=== PATIENT | female | born 1975 | race Caucasian/White ===

== ENCOUNTER → 2017-02-03 | Outpatient (CLI) | payer BC ==
[~2017-02-03] MED LIST: DOCU-94 PO; ESCI10TA17 PO; IBUP-103 PO; PEDICHW50 PO
--- NOTE | 2017-02-03 09:23 | DIAGNOSTIC IMAGING REPORT ---
EXAMINATION: PELVIC ULTRASOUND (transabdominal and endovaginal scanning) CLINICAL HISTORY: MENOMETRORRHAGIA COMPARISON STUDY: CT scan dated 01/02/2007 FINDINGS: The uterus measured 8.8 x 3.7 x 3.4 cm. Several nabothian gland cysts are visualized.. The endometrial stripe measured 7 mm. The right ovary measured 21 x 19 x 12 mm.. The left ovary measured 39 x 36 x 26 mm. There is a 29 mm septated cyst.. There is no ultrasonographic evidence of ovarian torsion. It should be noted that ovarian torsion can be present with normal Doppler ultrasonographic findings. There was no evidence of pathologic free pelvic fluid. IMPRESSION: 1. 7 mm endometrial stripe 2. 29 mm septated left ovarian cyst, likely functional Electronically signed by: Yury Blevins M.D. 02/03/2017 9:22 AM Dictated Date/Time: 02/03/2017 9:19 AM
== END | disposition home or self-care (01) ==
LOC: C.ULTR 08:19
PROVIDERS: ATTEND Family Medicine
DX: N92.1 Excessive and frequent menstruation with irregular cycle (principal)

== ENCOUNTER 2017-04-10 16:12 | Emergency (ER) | payer BC ==
[~2017-04-10] VITALS: Ht 157.5 cm; Wt 111.8 kg
[~2017-04-10 16:12] MED LIST changes: -DOCU-94 PO; -ESCI10TA17 PO; -IBUP-103 PO
[2017-04-10 16:22] VITALS: TEMP 36.4; Ht 157.5 cm; Wt 111.8 kg
[2017-04-10] MEDS ORDERED: ESCI10TA17 PO (16:42)
[2017-04-10] MEDS ORDERED: DOCU-94 PO (16:42)
[2017-04-10] MEDS ORDERED: IBUP-103 PO (16:42)
[2017-04-10 17:03] LABS: BASO % 0.5 %; BASO ABS # 0.04 K/uL (0-0.2); COMPLETE YES; EOS % 3.9 %; HEMATOCRIT 42.3 % (37-47); IG% 0.4 %; LYMPH % 25.7 %; LYMPH ABS # 2.05 K/uL (1.2-3.4); MEAN CELL VOLUME 91.8 fL (80-100); MEAN CORPUSCULAR HEMOGLOBIN 31.7 pg (25-34); MEAN CORPUSCULAR HGB CONC 34.5 g/dl (32-36); MEAN PLATELET VOLUME 9.5 fL (7.4-10.4); MONO % 8.6 %; NEUT % 60.9 %; PLATELET COUNT 260 K/uL (130-400); RED BLOOD COUNT 4.61 M/uL (4.2-5.4); WHITE BLOOD COUNT 7.99 K/uL (4.8-10.8)
[2017-04-10 17:14] LABS: PARTIAL THROMBOPLASTIN RATIO 1.2; PROTHROMBIN TIME (PATIENT) 10.6 SECONDS (9.0-12.0)
[2017-04-10 17:18] LABS: BUN/CREATININE RATIO 13.7 (10-20); CALCIUM 9.1 mg/dl (8.5-10.1); POTASSIUM 3.6 mmol/L (3.5-5.1)
[2017-04-10] MEDS ORDERED: SILVER NITR/POTASSIUM NITRATE APPLICATOR EXT STA (17:31)
--- NOTE | 2017-04-10 18:06 | EMERGENCY ROOM VISIT NOTE ---
History First contact with patient: 16:27 Chief Complaint: VAGINAL BLEEDING Stated Complaint: BLEEDING POST HYSTERECTOMY (3 WKS AGO) History of Present Illness The patient is a 41 year old female who presents to the Emergency Room with complaints of vaginal bleeding which began 30 minutes prior to arrival. The patient states that she had a laparoscopic assisted vaginal hysterectomy at [facility] on March 16 of this year. She states that everything, including the cervix was removed except for the right ovary. This was performed due to fibroids, ovarian cysts, and endometriosis. The patient states that she was referred to [place] by her primary care provider and does not see an DITCH CLEANER locally. She states that she has been healing very well since the surgery until this morning. She reports she has had a cough for the past few days and prior to arrival, she developed vaginal bleeding with clots. She is unsure if this is due to the cough. She is scheduled for a postop check tomorrow. She has no history of bleeding disorders. She does not take any blood thinners. She denies any weakness, dizziness or passing out. She denies any abdominal or vaginal pain. Review of Systems A complete 10 point review of systems was reviewed with the patient with pertinent positives and negatives as per history of present illness. All else were negative. Social History Smoking Status: Never Smoker Current/Historical Medications Scheduled Docusate Sodium (Colace), 100 MG PO TID Escitalopram (Lexapro), 5 MG PO QAM Scheduled PRN Ibuprofen Tab (Advil), 400 MG PO Q6H PRN for Pain Allergies Coded Allergies: No Known Allergies (Verified , 02/02/12) Physical Exam Vital Signs Date Time Temp Pulse Resp B/P Pulse Ox O2 Delivery O2 Flow Rate FiO2 04/10/17 18:23 89 18 168/94 96 04/10/17 16:22 36.4 100 18 171/107 94 Room Air Physical Exam VITALS: Vitals are noted on the nurse's note and reviewed by myself. Vital signs stable. GENERAL: This is a 41-year-old female, in no acute distress, nondiaphoretic, well-developed well-nourished. SKIN: Capillary reflex less than 2 seconds. HEART: Regular rate and rhythm without murmurs gallops or rubs. LUNGS: Clear to auscultation bilaterally without wheezes, rales or rhonchi. ABDOMEN: Soft, nontender to palpation. PELVIC: External genitalia unremarkable. There is a small amount of clotted blood within the vaginal vault. The vaginal cuff is intact and there is some clotted blood from the superior aspect of the cuff. NEURO: Patient was alert and oriented to person place and time. Medical Decision & Procedures Laboratory Results 04/10/17 16:50 Red Blood Count 4.61, Mean Corpuscular Volume 91.8, Mean Corpuscular Hemoglobin 31.7, Mean Corpuscular Hemoglobin Concent 34.5, Mean Platelet Volume 9.5, Neutrophils (%) (Auto) 60.9, Lymphocytes (%) (Auto) 25.7, Monocytes (%) (Auto) 8.6, Eosinophils (%) (Auto) 3.9, Basophils (%) (Auto) 0.5, Neutrophils # (Auto) 4.87, Lymphocytes # (Auto) 2.05, Monocytes # (Auto) 0.69, Eosinophils # (Auto) 0.31, Basophils # (Auto) 0.04 04/10/17 16:50 Test 04/10/17 16:50 White Blood Count 7.99 K/uL (4.8-10.8) Red Blood Count 4.61 M/uL (4.2-5.4) Hemoglobin 14.6 g/dL (12.0-16.0) Hematocrit 42.3 % (37-47) Mean Corpuscular Volume 91.8 fL (80-100) Mean Corpuscular Hemoglobin 31.7 pg (25-34) Mean Corpuscular Hemoglobin Concent 34.5 g/dl (32-36) Platelet Count 260 K/uL (130-400) Mean Platelet Volume 9.5 fL (7.4-10.4) Neutrophils (%) (Auto) 60.9 % Lymphocytes (%) (Auto) 25.7 % Monocytes (%) (Auto) 8.6 % Eosinophils (%) (Auto) 3.9 % Basophils (%) (Auto) 0.5 % Neutrophils # (Auto) 4.87 K/uL (1.4-6.5) Lymphocytes # (Auto) 2.05 K/uL (1.2-3.4) Monocytes # (Auto) 0.69 K/uL (0.11-0.59) Eosinophils # (Auto) 0.31 K/uL (0-0.5) Basophils # (Auto) 0.04 K/uL (0-0.2) RDW Standard Deviation 41.2 fL (36.4-46.3) RDW Coefficient of Variation 12.2 % (11.5-14.5) Immature Granulocyte % (Auto) 0.4 % Immature Granulocyte # (Auto) 0.03 K/uL (0.00-0.02) Prothrombin Time 10.6 SECONDS (9.0-12.0) Prothromb Time International Ratio 1.0 (0.9-1.1) Activated Partial Thromboplast Time 31.3 SECONDS (21.0-31.0) Partial Thromboplastin Ratio 1.2 Anion Gap 7.0 mmol/L (3-11) Est Creatinine Clear Calc Drug Dose 85.6 ml/min Estimated GFR () 79.9 Estimated GFR (Non- 69.0 BUN/Creatinine Ratio 13.7 (10-20) Calcium Level 9.1 mg/dl (8.5-10.1) Medical Decision Differential diagnosis includes intra-abdominal bleed, wound dehiscence, postoperative bleeding, among others. The patient was evaluated as above. Pelvic exam reveals clotting. I was not able to find a source of active bleeding. Labs were drawn. Coagulation studies were within normal limits. Hemoglobin was 14.6. There is no leukocytosis. I did discuss the case with the on-call DITCH CLEANER provider, Dr. Willingham. She was in the hospital at that time and did agree to evaluate the patient. Please see her dictation for details. She felt that the patient was not actively bleeding after removing a clot and did recommend that she be discharged home for follow-up as scheduled tomorrow. She recommended that the patient return if she had continued bleeding or any other new/concerning symptoms. The patient was comfortable with this treatment plan and verbalized her understanding. She was discharged home in good condition. The patient's case was reviewed with Dr. Andersen, ED attending physician, who agreed with my assessment and treatment plan. Impression Primary Impression: Postoperative vaginal bleeding Departure Information Dispostion Home / Self-Care Condition GOOD Referrals Chanda HagenD.ONikki (PCP) Patient Instructions My [facility] Additional Instructions Rest until your appointment tomorrow. Continue the Robitussin to repress the cough. Return here for worsening bleeding or any other new/concerning symptoms.
--- NOTE | 2017-04-10 18:14 | Medical Consult ---
Consultation Date of Consultation: April 10, 2017. Attending Physician: Dr Andersen Reason for Consultation: Vaginal bleeding, s/p robotic-assisted laparoscopic hysterectomy History of Present Illness I was asked to see patient by Michelle Lynn PA-C in the ER. Patient recently underwent robot-assisted laparoscopic hysterectomy in [place] with Dr Hussein on 03/16/17. Hysterectomy was performed due to menometrorrhagia and endometriosis. Patient states she developed an upper respiratory infection and cough over the past few days, and was coughing particularly hard this morning and then developed vaginal bleeding afterwards. She has passed multiple large clots. She had minimal spotting in her postoperative course leading up to today. Denies intercourse. Otherwise feeling well. Denies fever/chills, denies nausea/vomiting. Bowels have been regular - had a bowel movement this morning. Urinating ok. No abdominal pain. She has her first postop visit in [place] tomorrow. Past Medical/Surgical History Denies medical history Surgical history: RALH, wisdom teeth Family History denies family history of coagulation disorders Social History denies Smoking Status: Never Smoker Allergies Coded Allergies: No Known Allergies (Verified , 02/02/12) Review of Systems Constitutional: No problem reported Eyes: No problem reported ENT: No problem reported Respiratory: No problem reported Cardiovascular: No problem reported Abdomen: No problem reported Musculoskeletal: No problem reported Genitourinary - Female: + vaginal bleeding Neurologic: No problem reported Psychiatric: No problem reported Endocrine: No problem reported Hematologic / Lymphatic: No problem reported Integumentary: No problem reported Allergic / Immunologic: No problem reported Physical Exam Date Time Temp Pulse Resp B/P Pulse Ox O2 Delivery O2 Flow Rate FiO2 04/10/17 16:22 36.4 100 18 171/107 94 Room Air General Appearance: WD/WN, no apparent distress Respiratory/Chest: no respiratory distress Cardiovascular: regular rate, rhythm Abdomen/GI: non tender, soft, + pertinent finding (incisions healing well) Genitourinary - Female: external genitalia normal, + pertinent finding (small clot in vaginal vault. Gentle speculum exam performed, no active bleeding. Cuff gently probed with cotton-tipped applicator, no areas of obvious dehiscence. No bleeding visualized after removal of clot or with valsalva. ) Extremities/Musculoskelatal: normal inspection Neurologic/Psych: alert, normal mood/affect, oriented x 3 Skin: normal color Laboratory Results Last 24 Hours Test 04/10/17 16:50 White Blood Count 7.99 K/uL Red Blood Count 4.61 M/uL Hemoglobin 14.6 g/dL Hematocrit 42.3 % Mean Corpuscular Volume 91.8 fL Mean Corpuscular Hemoglobin 31.7 pg Mean Corpuscular Hemoglobin Concent 34.5 g/dl Platelet Count 260 K/uL Mean Platelet Volume 9.5 fL Neutrophils (%) (Auto) 60.9 % Lymphocytes (%) (Auto) 25.7 % Monocytes (%) (Auto) 8.6 % Eosinophils (%) (Auto) 3.9 % Basophils (%) (Auto) 0.5 % Neutrophils # (Auto) 4.87 K/uL Lymphocytes # (Auto) 2.05 K/uL Monocytes # (Auto) 0.69 K/uL Eosinophils # (Auto) 0.31 K/uL Basophils # (Auto) 0.04 K/uL RDW Standard Deviation 41.2 fL RDW Coefficient of Variation 12.2 % Immature Granulocyte % (Auto) 0.4 % Immature Granulocyte # (Auto) 0.03 K/uL Prothrombin Time 10.6 SECONDS Prothromb Time International Ratio 1.0 Activated Partial Thromboplast Time 31.3 SECONDS Partial Thromboplastin Ratio 1.2 Sodium Level 141 mmol/L Potassium Level 3.6 mmol/L Chloride Level 106 mmol/L Carbon Dioxide Level 28 mmol/L Anion Gap 7.0 mmol/L Blood Urea Nitrogen 14 mg/dl Creatinine 1.00 mg/dl Est Creatinine Clear Calc Drug Dose 85.6 ml/min Estimated GFR () 79.9 Estimated GFR (Non- 69.0 BUN/Creatinine Ratio 13.7 Random Glucose 99 mg/dl Calcium Level 9.1 mg/dl Assessment & Plan A: 41yo s/p robotic-assisted laparoscopic hysterectomy with vaginal bleeding P: There does not appear to be a cuff dehiscence on pelvic exam, and there is no active vaginal bleeding noted on my exam, even with valsalva. I believe that the cuff stitches likely tore the cuff tissue slightly when patient had her coughing fit this morning, but I do not appreciate any further bleeding at this time. Hemoglobin is stable. Abdominal exam is benign. From public affairs director perspective, ok to discharge home to plan followup as scheduled. I counseled patient to continue to watch her symptoms. If bleeding increases, please return immediately to ER. Keep followup appointment in [place] tomorrow for postop exam. Nothing in vagina for 8-12 weeks postop. (no intercourse, tampons, etc).
[2017-04-10 18:23] VITALS: BP 168/94; PULSE 89; O2SAT 96
== END 2017-04-10 18:24 | disposition home or self-care (01) ==
LOC: C.EDB 16:13
DX: N99.820 Postprocedural hemorrhage of a genitourinary system organ or structure following a genitourinary system procedure (principal); R05 Cough; Z79.899 Other long term (current) drug therapy; Z90.710 Acquired absence of both cervix and uterus; Z87.42 Personal history of other diseases of the female genital tract

== ENCOUNTER 2017-04-10 20:50 | Emergency (ER) | payer BC ==
[~2017-04-10] VITALS: Ht 157.5 cm; Wt 110.7 kg
[~2017-04-10 20:50] MED LIST changes: +DOCU-94 PO; +ESCI10TA17 PO; +IBUP-103 PO
[2017-04-10 20:54] VITALS: TEMP 36.7; Ht 157.5 cm; Wt 110.7 kg
--- NOTE | 2017-04-10 21:35 | EMERGENCY ROOM VISIT NOTE ---
ED Visit Note First contact with patient: 21:08 This Patient was discussed with the physician Stock Feeder, Michelle Lynn PA-C. The pertinent historical and physical exam findings were confirmed. I agree with the studies ordered and with the interpretations of these studies. I agree with the disposition and care plan.
[2017-04-10] MEDS ORDERED: SILVER NITR/POTASSIUM NITRATE APPLICATOR EXT STA (21:39)
[2017-04-10 21:55] LABS: BASO % 0.2 %; BASO ABS # 0.02 K/uL (0-0.2); COMPLETE YES; EOS % 1.3 %; HEMATOCRIT 39.8 % (37-47); IG% 0.4 %; LYMPH % 14.9 %; LYMPH ABS # 1.53 K/uL (1.2-3.4); MEAN CELL VOLUME 90.9 fL (80-100); MEAN CORPUSCULAR HEMOGLOBIN 31.5 pg (25-34); MEAN CORPUSCULAR HGB CONC 34.7 g/dl (32-36); MEAN PLATELET VOLUME 9.4 fL (7.4-10.4); MONO % 6.2 %; PLATELET COUNT 242 K/uL (130-400); RED BLOOD COUNT 4.38 M/uL (4.2-5.4); WHITE BLOOD COUNT 10.26 K/uL (4.8-10.8)
--- NOTE | 2017-04-10 22:34 | EMERGENCY ROOM VISIT NOTE ---
History First contact with patient: 21:07 Chief Complaint: ED VAG BLEEDING Stated Complaint: BLEEDING HEAVILY History of Present Illness The patient is a 41 year old female who presents to the Emergency Room with complaints of persistent vaginal bleeding. The patient was seen here earlier by myself and discharged approximately 2 hours ago. She states that when she arrived home, she developed vaginal bleeding again. She states she has been passing blood clots the size of her palm. She called [facility] OB/ [employer] DEVELOPER cotton ginner helper and they told her to come here for evaluation. Patient had a laparoscopic-assisted vaginal hysterectomy March 16 and had bleeding starting today. She denies abdominal pain, nausea, vomiting, lightheadedness, dizziness or passing out. Review of Systems A complete 10 point review of systems was reviewed with the patient with pertinent positives and negatives as per history of present illness. All else were negative. Social History Smoking Status: Never Smoker Current/Historical Medications Scheduled Docusate Sodium (Colace), 100 MG PO TID Escitalopram (Lexapro), 5 MG PO QAM Scheduled PRN Ibuprofen Tab (Advil), 400 MG PO Q6H PRN for Pain Allergies Coded Allergies: No Known Allergies (Verified , 02/02/12) Physical Exam Vital Signs Date Time Temp Pulse Resp B/P Pulse Ox O2 Delivery O2 Flow Rate FiO2 04/10/17 22:41 76 18 139/81 98 04/10/17 20:54 36.7 98 20 156/94 96 Room Air Physical Exam VITALS: Vitals are noted on the nurse's note and reviewed by myself. Vital signs stable. GENERAL: This is a 41-year-old female, in no acute distress, nondiaphoretic, well-developed well-nourished. SKIN: No pallor or cyanosis. HEART: Regular rate and rhythm without murmurs gallops or rubs. LUNGS: Clear to auscultation bilaterally without wheezes, rales or rhonchi. ABDOMEN: Soft, nontender. PELVIC: External genitalia unremarkable. Some clotted blood within the vaginal vault. Vaginal cuff is intact, but there is continued oozing blood from the superior aspect of the cuff. NEURO: Patient was alert and oriented to person place and time. Medical Decision & Procedures Laboratory Results 04/10/17 21:45 Red Blood Count 4.38, Mean Corpuscular Volume 90.9, Mean Corpuscular Hemoglobin 31.5, Mean Corpuscular Hemoglobin Concent 34.7, Mean Platelet Volume 9.4, Neutrophils (%) (Auto) 77.0, Lymphocytes (%) (Auto) 14.9, Monocytes (%) (Auto) 6.2, Eosinophils (%) (Auto) 1.3, Basophils (%) (Auto) 0.2, Neutrophils # (Auto) 7.90, Lymphocytes # (Auto) 1.53, Monocytes # (Auto) 0.64, Eosinophils # (Auto) 0.13, Basophils # (Auto) 0.02 Test 04/10/17 21:45 White Blood Count 10.26 K/uL (4.8-10.8) Red Blood Count 4.38 M/uL (4.2-5.4) Hemoglobin 13.8 g/dL (12.0-16.0) Hematocrit 39.8 % (37-47) Mean Corpuscular Volume 90.9 fL (80-100) Mean Corpuscular Hemoglobin 31.5 pg (25-34) Mean Corpuscular Hemoglobin Concent 34.7 g/dl (32-36) Platelet Count 242 K/uL (130-400) Mean Platelet Volume 9.4 fL (7.4-10.4) Neutrophils (%) (Auto) 77.0 % Lymphocytes (%) (Auto) 14.9 % Monocytes (%) (Auto) 6.2 % Eosinophils (%) (Auto) 1.3 % Basophils (%) (Auto) 0.2 % Neutrophils # (Auto) 7.90 K/uL (1.4-6.5) Lymphocytes # (Auto) 1.53 K/uL (1.2-3.4) Monocytes # (Auto) 0.64 K/uL (0.11-0.59) Eosinophils # (Auto) 0.13 K/uL (0-0.5) Basophils # (Auto) 0.02 K/uL (0-0.2) RDW Standard Deviation 41.0 fL (36.4-46.3) RDW Coefficient of Variation 12.2 % (11.5-14.5) Immature Granulocyte % (Auto) 0.4 % Immature Granulocyte # (Auto) 0.04 K/uL (0.00-0.02) Medical Decision The patient was evaluated as above. I did personally see the patient a few hours prior to this visit. At that time, she was seen by TAPE STRINGER and had no active bleeding and was sent home. At the time of this evaluation, the patient does have some active oozing blood from the superior aspect of the vaginal cuff. Dr. Andersen also evaluated the patient and was in agreement. TAPE STRINGER was again consulted and Dr. Willingham evaluated the patient. She did perform cautery with silver nitrate and no bleeding was observed. A hemoglobin was rechecked and was 13.8. There has been no significant blood loss. The patient was reassured. She will be discharged home to follow-up with her she tomorrow. She was encouraged to return here for lightheadedness, passing out, dizziness, or if she begins to soak through more than 1 pad per hour. She verbalized her understanding of my assessment and treatment plan and was discharged home in good condition. Impression Primary Impression: Postoperative vaginal bleeding Departure Information Dispostion Home / Self-Care Condition GOOD Referrals Chanda Hagen,D.ONikki (PCP) Patient Instructions My [facility] Additional Instructions Follow-up with Sandy tomorrow as scheduled. Rest as much as possible. Return for passing out, feeling lightheaded, weakness, pale color, or if you begin to soak through more than 1 pad per hour.
[2017-04-10 22:41] VITALS: BP 139/81; PULSE 76; O2SAT 98
--- NOTE | 2017-04-10 22:49 | Medical Consult ---
Consultation Date of Consultation: April 10, 2017. Attending Physician: Dr Andersen Reason for Consultation: vaginal bleeding History of Present Illness Pt is 41yo, s/p robotic-assisted laparoscopic hysterectomy, performed 03/16/17. I was asked to evaluate the patient in the ER by Michelle Lynn PA-C. She had presented earlier today to the ER with complaint of vaginal bleeding and passing large clots. She believed this had happened suddenly after having a coughing fit this morning. I performed a pelvic exam in the ER on her earlier presentation, and at the time of my exam, there was a small dark clot in the vagina and no additional bleeding. On earlier exam, I had asked patient to cough and there was no visible bleeding from the vagina. I had seen no areas of active bleeding at the time. I had counseled patient to return to ER if she developed worsening bleeding or new symptoms, and to followup with her STENOTYPIST surgeon at [place] tomorrow as scheduled for her routine postop visit. Patient then returned to the ER this evening with complaint of passing 3 blood clots after she got out of her truck, and feeling like blood was continuing to come out. The largest blood clot was the size of her palm. She used the same pad for approximately 3 hours without needing to change it. She called her STENOTYPIST in [place] and was directed to return to the [facility] ER for further evaluation. Denies fever/chills/nausea/vomiting/abdominal pain. Bowels/urination are normal. Past Medical/Surgical History Medical Problems: (1) Vaginal bleeding Status: Acute Social History Smoking Status: Never Smoker Allergies Coded Allergies: No Known Allergies (Verified , 02/02/12) Review of Systems negative except as described above Physical Exam Date Time Temp Pulse Resp B/P Pulse Ox O2 Delivery O2 Flow Rate FiO2 04/10/17 20:54 36.7 98 20 156/94 96 Room Air General Appearance: WD/WN, no apparent distress Respiratory/Chest: no respiratory distress Cardiovascular: regular rate, rhythm Abdomen/GI: non tender, soft Genitourinary - Female: + pertinent finding (On this exam, there is more blood on patient's thighs than previously seen on prior exam. Speculum exam reveals intact cuff, as gently probed by cotton swab. On my exam, no areas of active bleeding were noted. I watched with the speculum for approximately 10 minutes. I did not see any areas of active bleeding. There was an area of tissue that was not actively bleeding, but appeared like it could have possibly oozed earlier - that I treated with a silver nitrite stick - this was at approximately 12 o'clock on the vaginal cuff. Dr Andersen and Michelle were also present for exam. ) Laboratory Results Last 24 Hours Test 04/10/17 21:45 White Blood Count 10.26 K/uL Red Blood Count 4.38 M/uL Hemoglobin 13.8 g/dL Hematocrit 39.8 % Mean Corpuscular Volume 90.9 fL Mean Corpuscular Hemoglobin 31.5 pg Mean Corpuscular Hemoglobin Concent 34.7 g/dl Platelet Count 242 K/uL Mean Platelet Volume 9.4 fL Neutrophils (%) (Auto) 77.0 % Lymphocytes (%) (Auto) 14.9 % Monocytes (%) (Auto) 6.2 % Eosinophils (%) (Auto) 1.3 % Basophils (%) (Auto) 0.2 % Neutrophils # (Auto) 7.90 K/uL Lymphocytes # (Auto) 1.53 K/uL Monocytes # (Auto) 0.64 K/uL Eosinophils # (Auto) 0.13 K/uL Basophils # (Auto) 0.02 K/uL RDW Standard Deviation 41.0 fL RDW Coefficient of Variation 12.2 % Immature Granulocyte % (Auto) 0.4 % Immature Granulocyte # (Auto) 0.04 K/uL Assessment & Plan 41yo s/p RALH with vaginal bleeding I do not believe patient has a cuff dehiscence, as cuff appears intact. There was one small area that I used a silver nitrite stick in an attempt to coagulate to prevent further blood oozing. I discussed with patient that she may have a small amount of bleeding/clots, but that her hemoglobin and vitals are stable. I did not see any active bleeding or oozing on exam. While differential also includes intra-abdominal bleeding that could be leaking through the vaginal cuff, I think this is very unlikely given patient's benign abdominal exam, lack of symptoms, and stable vitals/hemoglobin. OK to discharge to home - counseled that if she is soaking through pads within 1-2 hours, or has symptomatic anemia, she is to return to the ER immediately.
== END 2017-04-10 22:43 | disposition home or self-care (01) ==
LOC: C.EDB 20:51 → C.EDA 22:43
DX: N99.820 Postprocedural hemorrhage of a genitourinary system organ or structure following a genitourinary system procedure (principal); Z79.899 Other long term (current) drug therapy; Z90.710 Acquired absence of both cervix and uterus